=== PATIENT | female | born 1980 | race Caucasian/White ===

== ENCOUNTER → 2018-09-14 15:07 | Outpatient (CLI) | payer BC, SELFPAY ==
[2018-09-20 11:17] LABS: HPV HC, High Risk Negative (Negative)
== END ==
PROVIDERS: Visit Provider Obstetrics & Gynecology
DX: Z12.4 Encounter for screening for malignant neoplasm of cervix (principal)
CPT/HCPCS: 87624; 88175; G0145

== ENCOUNTER → 2018-12-12 16:07 | Outpatient (CLI) | payer BC, SELFPAY ==
[2017-04-25 19:40] VITALS: BMI 37.7
[2018-12-12 21:40] LABS: Chlamydia Trachomatis by PCR Negative (Negative); Neisserai gonorrhoeae by PCR Negative (Negative); Probe Check PASS; Sample Adequacy Control PASS; Specimen Processing Control PASS
== END ==
PROVIDERS: Visit Provider Obstetrics & Gynecology
DX: Z11.3 Encounter for screening for infections with a predominantly sexual mode of transmission (principal); Z32.01 Encounter for pregnancy test, result positive
CPT/HCPCS: 87491; 87591

== ENCOUNTER → 2019-01-09 10:18 | Outpatient (CLI) | payer BC, SELFPAY ==
[2017-04-25 19:40] VITALS: BMI 37.7
[2019-01-09 12:00] LABS: Color, Urine Yellow (Yellow); Glucose, Dipstick Normal (Normal); Ketone-Dipstick Negative (Negative); Leukocyte Esterase-Dipstick Negative /ul (Negative); Nitrite-Dipstick Negative (Negative); Occult Blood-Urine Negative /ul (Negative); Protein-Dipstick Negative (Negative); Specific Gravity, Urine 1.005 (1.002-1.030); Urine Bilirubin Dipstick Negative (Negative); Urine Clarity Clear (Clear); Urine Urobilinogen Normal (Normal)
[2019-01-09 12:03] LABS: Absolute Lymphocyte Count 1.56 X10^3/ul (0.83-4.51); Absolute Neutrophil Count 6.5 X10^3/uL (2.0-7.7); Basophil# 0.02 X10^3/uL; Basophil% 0.2 % (0-1); Eosinophil# 0.11 X10^3/uL; Eosinophils% 1.3 % (0-5); Hematocrit 41.5 % (37-47); Hemoglobin 13.6 g/dl (12.0-15.0); Lymphocyte # 1.56 X10^3/ul (4.0); Lymphocyte % 17.9 % (19-41); Mean Corp Hgb Conc 32.8 g/gl (32-36); Mean Corpuscular Hgb 30.5 pg (27.0-32.0); Mean Platelet Vol. 10.1 fl (6.2-12.0); Monocyte# 0.53 X10^3/uL; Monocyte% 6.1 % (0-10); Neutrophil # 6.49 X10^3/uL (2.7-7.7); Neutrophil % 74.3 % (47-70); Platelet Count 434 K/mm3 (150-450); RBC Distribution Width CV 12.1 % (11.6-14.6); RBC Distribution Width SD 40.5 fl (35.1-43.9); Red Blood Count 4.46 M/mm3 (4.2-5.4); White Blood Count 8.7 K/mm3 (4.4-11.0)
[2019-01-09 12:04] LABS: POSITIVE COUNT NO; POSITIVE DIFFERENTIAL NO; POSITIVE MORPHOLOGY NO
[2019-01-09 12:26] LABS: Thyroid Stim Hormone (TSH) 1.04 uIU/mL (0.358-3.74)
[2019-01-09 12:33] LABS: Amphetamine Urine VISTA NEGATIVE (<1000 ng/mL); Barbiturate Urine VISTA NEGATIVE (< 200 ng/mL); Benzodiazepine Urine VISTA NEGATIVE (< 200 ng/mL); Cocaine Urine VISTA NEGATIVE (< 300 ng/mL); Ecstacy Urine VISTA NEGATIVE (< 500 ng/mL); Methadone Urine VISTA NEGATIVE (< 300 ng/mL); PCP Urine VISTA NEGATIVE (< 25 ng/mL); THC Urine VISTA NEGATIVE (< 50 ng/mL); Vista UDS pH Range 7
[2019-01-09 13:04] LABS: HIV - WCH Non-Reactive (Nonreactive); Rubella IgG 37.9 IU/mL
[2019-01-09 13:42] LABS: COTININE Drug Screen Negative (<200 ng/mL)
[2019-01-10 11:47] LABS: HEPATITIS B SURFACE AG Negative (Negative); Hep C Antibodies <0.1 s/co ratio (0.0-0.9)
[2019-01-11 22:02] LABS: Prenatal RPR NONREACTIVE (NONREACTIVE)
== END ==
PROVIDERS: Visit Provider Obstetrics & Gynecology
DX: Z34.81 Encounter for supervision of other normal pregnancy, first trimester (principal)
CPT/HCPCS: 36415; 80307; 81002; 84443; 85025; 86703; 86762; 86803; 87340

== ENCOUNTER → 2019-05-17 | Outpatient (CLI) | payer BC, SELFPAY ==
[2017-04-25 19:40] VITALS: BMI 37.7
[2019-05-17 15:57] LABS: Glucose Challenge Gest 1H 50g 150 mg/dL (70-140)
[2019-05-17 16:04] LABS: Hematocrit 32.3 % (37-47); Hemoglobin 10.5 g/dl (12.0-15.0); Mean Corp Hgb Conc 32.5 g/gl (32-36); Mean Corpuscular Hgb 28.6 pg (27.0-32.0); Mean Platelet Vol. 9.4 fl (6.2-12.0); Platelet Count 389 K/mm3 (150-450); RBC Distribution Width CV 13.1 % (11.6-14.6); RBC Distribution Width SD 42.1 fl (35.1-43.9); Red Blood Count 3.67 M/mm3 (4.2-5.4); White Blood Count 13.5 K/mm3 (4.4-11.0)
[2019-05-17 16:06] LABS: Scan Indicated on CBC? Y/N NO
== END | disposition home or self-care (01) ==
LOC: WOBLAB 15:00
PROVIDERS: Visit Provider Obstetrics & Gynecology
DX: Z34.83 Encounter for supervision of other normal pregnancy, third trimester (principal)
CPT/HCPCS: 36415; 82950; 85027

== ENCOUNTER → 2019-05-24 | Outpatient (CLI) | payer BC, SELFPAY ==
[2019-05-24 10:34] LABS: Glucose GTT-Gestation. Fasting 84 mg/dL (<105)
[2019-05-24 11:48] LABS: Glucose GTT-Gestational 1 Hr 130 mg/dL (<190)
[2019-05-24 13:12] LABS: Glucose GTT-Gestational 2 Hr 145 mg/dL (<165)
[2019-05-24 13:49] LABS: Glucose GTT-Gestational 3 Hr 72 L (<145)
== END | disposition home or self-care (01) ==
PROVIDERS: Family Provider Family Medicine; PCP Family Medicine; Referring Provider Obstetrics & Gynecology; Visit Provider Obstetrics & Gynecology
DX: O99.810 Abnormal glucose complicating pregnancy (principal); Z3A.00 Weeks of gestation of pregnancy not specified
CPT/HCPCS: 36415; 82951; 82952

== ENCOUNTER 2019-08-06 05:30 | Inpatient (IN) | payer BC, SELFPAY ==
--- NOTE | 2019-08-04 19:10 | PCM.HPOB.BLA ---
History and Physical Date of Admission: 08/06/19 OB HISTORY AND PHYSICAL EXAMINATION History of this : 38 yo female Ab0 with EDC 08/10/2019 by 9 weeks 4 days Ultrasound, presents to Labor and Delivery for planned repeat C section and BPS. care remarkable for - 1.) Sterilization request 2.) Abnormal Glucola normal 3 hr GTT. 3.) AMA. declined MSAFP testing Had normal cell free DNA 4.) Prior C/S delivery plans repeat C section 5.) FOB with known hemochromatosis Pertinent Past Medical History: \\None Allergies: NKDA Medications: During - Vitamin B Complex With C capsule; ferrous gluconate 324 mg (37.5 mg iron) tablet; PreNata 29 mg iron- 1 mg tablet,chewable Review of Systems: Non-contributory PHYSICAL EXAMINATION General Appearance: 38 yo female in no acute distress Vital Signs: AF, VSS Lungs: regular respiratory rate Breasts: deferred Abdomen: gravid Pelvis: Cervix: Presentation: cephalic Station: Fetus: Size: AGA Movement: present Heart: present Impression /Plan: Intrauterine . 39 wk EGA Prior C section, planned repeat. Sterilization request. Admit for repeat C section and bilateral partial salpingectomy. Se
[2019-08-06] VITALS (22 sets, daily range): BP systolic 90–146; BP diastolic 41–81; PULSE 80–112; RESP 12–18; TEMP 35.9–37.4; O2SAT 94–100; BMI 41.3
[2019-08-06] MEDS: Lactated Ringers 1,000 ML 999 ML IV (05:50)
[2019-08-06 06:17] LABS: Absolute Lymphocyte Count 1.79 X10^3/uL (0.83-4.51); Absolute Neutrophil Count 8.9 X10^3/uL (2.0-7.7); Basophil# 0.04 X10^3/uL; Basophil% 0.3 % (0-1); Eosinophil# 0.15 X10^3/uL; Eosinophils% 1.3 % (0-5); Hematocrit 34.7 % (37-47); Hemoglobin 11.1 g/dL (12.0-15.0); Lymphocyte # 1.79 X10^3/ul (4.0); Lymphocyte % 15.4 % (19-41); Mean Corpuscular Hgb 28.6 pg (27.0-32.0); Mean Corpuscular Volume 89.4 fL (81-99); NRBC Flagged by Analyzer 0 % (0-5); Neutrophil # 8.85 X10^3/uL (2.7-7.7); Neutrophil % 75.9 % (47-70); Platelet Count 397 K/mm3 (150-450); RBC Distribution Width CV 14.9 % (11.6-14.6); RBC Distribution Width SD 48.4 fl (35.1-43.9); Red Blood Count 3.88 M/mm3 (4.2-5.4); White Blood Count 11.7 K/mm3 (4.4-11.0)
[2019-08-06] MEDS: Lactated Ringers 1,000 ML 150 ML IV (06:51)
[2019-08-06 07:04] LABS: International Normalized Ratio 0.9; Prothrombin Time (Protime)PT. 12.2 SECONDS (11.7-14.9)
[2019-08-06 07:05] LABS: Partial Thromboplast Time 24.1 Seconds (24.1-36.2)
[2019-08-06] MEDS: Sodium Citrate/Citric Acid 30 ML UDC PO (07:17)
--- NOTE | 2019-08-06 07:44 | DCINST_ITS ---
Discharge Diet: No Restrictions Discharge Activity: May not drive while taking narcotic pain medications., May Shower, May Take a Tub Bath May resume sexual activity in: 4-6 weeks Lifting Restrictions: 20 pounds Additional Activity Instructions:: Nothing in the vagina for 4-6 weeks. You may return to work/school in 6 weeks. Change Dressing in (Days):: 7 Remove Dressing in (days):: 7 Cleanse incision/area with: Soap & Water, Keep Dressing Clean & Dry Additional Instructions: If you experience any of the following, contact your healthcare provider. * Bleeding that soaks a pad every hour for 2 hours * Fever 100.4 or higher * Unrelieved incision or abdominal pain * Swelling, redness, discharge or bleeding from your incision * Problems urinating (including inability to urinate or burning while urinating). * Visual changes * Severe headache * Flu-like symptoms * Pain or redness in one of both of your breasts * Pain, warmth, tenderness or swelling in your legs, especially the calf area * Frequent nausea and vomiting * Symptoms of depression or anxiety If you experience any of the following, call 911 or go to the nearest Emergency Room. * Chest pain * Problems breathing * Seizure activity * Partial or complete paralysis of a body part, slurred speech, weakness or drooping of the face, or a sudden inability to walk or hold your balance Allergies/Adverse Reactions: Allergies No Known Allergies Allergy (Verified 08/06/19 07:44) Medications to take at Discharge Vits [Prenatabs FA ] 1 tablet PO DAILY 04/25/17 Vitamin B Complex/Folic Acid [Super B Maxi Complex Caplet] 0.4 mg PO DAILY 04/25/17 Ibuprofen [Motrin] 800 mg PO TID PRN PRN #30 tablet 04/27/17 Oxycodone [Oxyir] 5 - 10 mg PO Q4H PRN PRN #30 tablet 04/27/17 Nifedipine [Procardia Xl] 30 mg PO DAILY #30 tab.er.24 04/29/17 Docusate Sodium [Colace] 100 mg PO BID #30 cap 08/06/19 Naproxen [Naprosyn] 250 - 500 mg PO TID PRN PRN #30 tab 08/06/19 Oxycodone [Oxyir] 5 - 10 mg PO Q6H PRN PRN 3 Days #15 tablet 08/06/19 Polyethylene Glycol 3350 [Miralax] 17 gm PO DAILY PRN #14 packet 08/06/19 The following prescriptions were given: Docusate Sodium [Colace] 100 mg PO BID #30 cap Transmission Status: Pending to [id number] Polyethylene Glycol 3350 [Miralax] 17 gm PO DAILY PRN #14 packet PRN Reason: Constipation Transmission Status: Pending to [id number] Naproxen [Naprosyn] 250 - 500 mg PO TID PRN PRN #30 tab PRN Reason: Mild-Mod Pain (1-04/06) Transmission Status: Pending to [id number] Oxycodone [Oxyir] 5 - 10 mg PO Q6H PRN PRN 3 Days #15 tablet PRN Reason: Mod-Severe Pain (-09/06) Transmission Status: Received by [id number] Follow-Up: Call to make an appointment with your doctor for an incision check in 1-2 weeks. You will also need a 6 week post- follow up appointment. Test results from this visit will be discussed in further detail at your follow- up appointment, if applicable. Please Follow Up With: Rose Aquino MD - [phone] When: Call to make an appointment for an incision check in 2 weeks. Primary Care Physician: Katerina Mello MD [Primary Care Provider] - Proposed Discharge Date: 08/09/19
[2019-08-06] MEDS: Cefazolin 2 GM in 0.9% Normal Saline 100 ML IV (07:48)
--- NOTE | 2019-08-06 07:59 | FALS_PTH ---
PATIENT: HALLE WINKLER LOC: [facility] U#:[id number] AGE/SX: 38/F ROOM: [facility]004 RE08/06/[address]: Dr. Rose Aquino MD : 1980 BED: 1 DIS: 08/08/2019 SPEC #: [id number] RECD: 08/06/19 17:27 STATUS: TREV RETita #: [id number] AMINA: 08/06/19 07:[address]: Rose Aquino DEPT: SURGICAL PATHOLOGY RECD BY: Matthew Grimes ENTERED: 08/07/19 09:23 SP TYPE: FALL TUBES OTHR DR: Dr. Katerina Mello MD Tissues: Fallopian tube Procedures: Surgery Specimen Level II HEADER OPERATION: Tubal ligation PRE-OP DIAGNOSIS: Tubal ligation TISSUE SUBMITTED: A. Right fallopian tube, B. Left fallopian tube MICROSCOPIC DIAGNOSIS A. Right fallopian tube, tubal ligation: Completely transected segment of fallopian tube, no pathologic diagnosis. B. Left fallopian tube, tubal ligation: Completely transected segment of fallopian tube, no pathologic diagnosis. JOSEE:giovanni 08/08/19 MICROSCOPIC DESCRIPTION Slides are reviewed. GROSS DESCRIPTION A - Received is one container labeled with the patient's name and designated right fallopian tube. The specimen consists of a tubular piece of pink-lima soft tissue measuring 1.2 cm in length and 0.5 cm in diameter. The entire specimen is submitted in one cassette. The specimen will be sectioned at the time of embedding. B - Received is one container labeled with the patient's name and designated left fallopian tube. The specimen consists of a tubular piece of pink-lima soft tissue measuring 1 cm in length and 0.6 cm in diameter. The entire specimen is submitted in one cassette. The specimen will be sectioned at the time of embedding. / JOSEE:giovanni 08/07/19 TC:4 CPT: 79713 x2
[2019-08-06] MEDS: Oxytocin 30 units/NS 500 ml 30 UNITS/500 ML IV.SOLN 167 UNITS IV (09:21)
[2019-08-06] MEDS: Lactated Ringers 1,000 ML 100 ML IV (13:05)
[2019-08-06] MEDS: Prenatal Vits Tablet 1 TABLET PO (15:16)
[2019-08-06] MEDS: Ketorolac 30 MG/ML Syringe IV ×2 (15:17→21:01)
--- NOTE | 2019-08-06 17:04 | OP.PCM_ITS ---
Report of Operation Date of Procedure: 08/06/19 Pre-Operative Diagnosis: 39 wk prior C/S planned repeat C section. Steri lization request Post-Operative Diagnosis: Same Surgery/Procedure Performed:: Repeat C section and bilateral partial salpingectomy Description of Surgical Findings:: Normal appearing uterus, fallopian tubes and ovaries bilaterally. Filmy adhesions at both fallopian tubes, lysed for procedure. Solomon viable female vtx presentation. Ap 8/9 Wt: 3812 gm glucose and syrup weigher: Judy Ureña Type of Anesthesia:: Spinal Anesthesiologist: Rojelio Jimenes Specimen's removed: Placenta Drains: Gill , clear yellow urine Estimated Blood Loss (mL): 600 cc Fluids Replaced: LR - Complications None Delivery Classification: Scheduled Final ALPA: 08/10/19 Gestational age: 39 Weeks and 3 Days Description of Procedure: Narrative account: After the risks, benefits and alternatives of the procedure were reviewed with the patient, informed consent was obtained. The patient was taken to the Operating room with an IV running, and placed in a seated position on the operating table for placement of the spinal. Once the spinal had been administered, she was briefly frog-legged for Gill catheter placement, and then repositioned to dorsal supine position with leftward displacement of the uterus, and prepped and draped in the usual sterile fashion. Once the spinal was deemed adequate, a Pfannenstiel skin incision was created using the knife (through the prior skin incision scar). The incision was carried down to the rectus fascia using the knife. The fascia was nicked in the midline. The fascial incision was extended bilaterally using curved Virgen scissors. The superior aspect of the fascial incision was grasped with Hoang clamps and tented up and the underlying rectus abdominal muscles were dissected free. In a similar manner, the inferior aspect of the facial incision was grasped with Hoang clamps tented up and the underlying rectus abdominal muscles were dissected free. The rectus abdominis muscles were in the midline and the peritoneum was identified and entered by blunt dissection high in the incision. The peritoneum was stretched laterally and a bladder blade was inserted. A bladder flap was created along the lower uterine segment with Metzenbaum scissors . The uterine incision was then created using Metzenbaum scissors. The operators fingertips were used to extend the uterine incision by blunt dissection in a caudad- cephalad orientation . Clear fluid was noted at amniotomy. The vertex was then delivered atraumatically through the incision. The OP and nares were bulb suctioned on the abdomen. The shoulders delivered easily . The cord clamped x two and cut. And the was handed off to the nurse awaiting delivery after briefly showing her to her parents. The baby had a spontaneous, vigorous cry. The placenta was then delivered. The uterus was exteriorized and cleared of clots and debris . The uterine incision was repaired with 1 Vicryl in a running locked fashion. A second imbricating layer was then placed, using 1 Monocryl in running nonlocked fashion. Bovie cautery was used to treat any bleeding areas . Excellent hemostasis was noted. At this point attention was then turned to the bilateral partial salpingectomy. The right fallopian tube was grasped at a relatively avascular midportion and a Bernardo clamp was used to tent the tube up. A defect was created in the mesosalpinx using Bovie cautery. The proximal and distal ends of the fallopian tube were tied with a 2-0 catgut. A knuckle of the tube was then tied off inferior to these 2 ties placed prior. A segment of the right fallopian tube was then excised using Metzenbaum scissors. Bovie cautery was used at the tubal stumps to assure continued hemostasis. The tubal segment was set aside for later pathology review. In a similar manner the left fallopian tube partial salpingectomy was performed. Excellent hemostasis was noted at both tubal segments. The two portions of the completely transected fallopian tubes were set aside for later pathology review. At this point the uterus was returned to the abdominal cavity. The gutters were cleared of clots and debris and the incision at the uterus was inspected. Surgicell was applied along the entire incision for continued hemostasis. Excellent hemostasis was noted. The peritoneal edges were reapproximated in the midline with interrupted vertical mattress sutures of 1 Vicryl. Surgicel was applied to this layer. Excellent hemostasis was noted at the subfascial space Surgicel was dusted over this layer as well. The fascia was closed in a running nonlocked fashion with a Stratofix. The Subcutaneous fatty tissue was Bovie cauterized as needed for hemostasis. Surgicel was liberally dusted at this layer to prevent seroma formation. This layer was then reapproximated in a single layer closure of running 3-0 Vicryl to eliminate space. The skin edges were closed in a Subcuticular stitch of 4-0 Monocryl. The incision was cleansed. Cavilon, Steristrips, and Mepilex dressing were applied to the skin . The patient was then transferred to the recovery room bed in stable condition after tolerating the procedure well. Sponge, lap, needle and instrument counts correct times two. Medications given preop and intraoperatively included: Ancef 2 gm IV given personnel consultant to the operating room. The patient also received Pitocin given IV after cord clamp, and Toradol 30 mg IV times one. For a complete listing of medications given preop and intraoperatively, please see the anesthesia record. Amniotic Membrane Rupture Type: Artificial Amniotic Fluid Description: Clear Placenta Disposition: [facility] Specimen(s) sent to pathology: bilateral tubal segments Drain: Gill to straight drain Cord Entanglement: None Cord Vessel Description: 3 Vessels Esitmated Blood Loss (ml): 600 Gender: Female (1 minute): 9 (5 minute): 9 Delayed cord clamping: No Antibiotic Given: Ancef 2 grams IV x1
[2019-08-06 17:25] LABS: Pathology Specimen OB SEE PATHOLOGY REPORT
--- NOTE | 2019-08-06 18:04 | NURSING ---
accidently charted full set of vitals at 1755 that was meant to go on another patient, when undoing it, this nurse accidently clicked on elevated glucose as to reason undid.
[2019-08-06] MEDS: 0.9% Saline Lock 10 ML Syringe IV ×2 (21:01→21:03)
[2019-08-07] VITALS (9 sets, daily range): BP systolic 101–142; BP diastolic 62–92; PULSE 90–101; RESP 16–20; TEMP 36.4–37.3; O2SAT 96–99
[2019-08-07] MEDS: Ketorolac 30 MG/ML Syringe IV ×3 (03:10→14:53)
[2019-08-07] MEDS: 0.9% Saline Lock 10 ML Syringe IV ×4 (03:11→14:53)
[2019-08-07 05:19] LABS: Hematocrit 27.1 % (37-47); Hemoglobin 8.8 g/dL (12.0-15.0); Mean Corp Hgb Conc 32.5 g/dL (32-36); Mean Corpuscular Hgb 29.1 pg (27.0-32.0); Mean Corpuscular Volume 89.7 fL (81-99); Mean Platelet Vol. 9.8 fl (6.2-12.0); Platelet Count 257 K/mm3 (150-450); RBC Distribution Width CV 15.2 % (11.6-14.6); RBC Distribution Width SD 49.7 fl (35.1-43.9); Red Blood Count 3.02 M/mm3 (4.2-5.4); White Blood Count 16.9 K/mm3 (4.4-11.0)
--- NOTE | 2019-08-07 07:42 | PCM.PN.OB ---
Subjective: pod#1 39 + WK Prior C section. Repeat C/S and BPS. Doing well. No concerns, a little more sore this am. Gill out but hasn't been up to void. Neg flatus. Minimal bleeding. - Physical Exam General: Alert, Oriented x3, Cooperative, No apparent distress HEENT: Atraumatic, EOMI Neck: Supple Abdomen: Soft - Fundus firm minimally tender c/w postop status, at approx 1 cm above umbilicus Skin: Incision - Mepilex dressing CDI. Psych/Mental Status: Normal Affect Vital Signs Temp Pulse Resp BP Pulse Ox 98.5 F 90 16 101/62 98 08/07/19 03:15 08/07/19 07:00 08/07/19 07:00 08/07/19 03:15 08/07/19 07:00 Oxygen Delivery Method Room Air Weight: 102.603 kg Body Mass Index (BMI) 41.3 Intake and Output for Last 24 Hours 08/05/19 08/06/19 08/07/19 23:59 23:59 23:59 Intake Total 5776.67 / 5776.67 900 / 900 Output Total 2300 / 2300 1200 / 1200 Balance 3476.67 / 3476.67 -300 / -300 Laboratory Tests Past 24 Hrs 08/07/19 05:00 WBC 16.9 H RBC 3.02 L Hgb 8.8 L Hct 27.1 L MCV 89.7 MCH 29.1 MCHC 32.5 RDW Std Deviation 49.7 H RDW Coeff of Juancarlos 15.2 H Plt Count 257 MPV 9.8 Medical Necessity - Tobacco Use Smoking Status: Never smoker Assessment/Plan POD#1 Repeat C section and BPS 39+ wk EGA Stable postop. Inc diet and activity as tolerated. Begin po meds. Gill out for voiding trial. S/L IV for continued toradol x 48 hr postop Postop acute blood loss anemia. -- Ferrous sulfate daily for one month Continue care.
[2019-08-07] MEDS: Senna/Docusate Sodium 1 Tablet PO (12:48)
[2019-08-07] MEDS: Ferrous Sulfate 325 MG Tablet PO (12:48)
[2019-08-07] MEDS: Prenatal Vits Tablet 1 TABLET PO (12:48)
[2019-08-07] MEDS: oxyCODONE 5 MG Tablet PO ×2 (14:06→20:47)
[2019-08-08] MEDS: oxyCODONE 5 MG Tablet PO ×3 (01:22→13:04)
[2019-08-08] MEDS: Naproxen 250 MG Tablet PO ×2 (02:49→11:00)
[2019-08-08 03:30] VITALS: BP 122/78; PULSE 87; RESP 16; TEMP 37.6
--- NOTE | 2019-08-08 07:34 | PCM.PN.OB ---
Subjective: POD#2 Repeat C/S and BPS Doing well. Would like to go home today. Pain control adequate. - Physical Exam General: Alert, Oriented x3, Cooperative, No apparent distress HEENT: Atraumatic, EOMI Neck: Supple Abdomen: Soft - Fundus firm minimally tender at umbilicus Skin: Incision - CDI mepilex dressing in place. Psych/Mental Status: Normal Affect Vital Signs Temp Pulse Resp BP Pulse Ox 99.6 F H 87 16 122/78 H 99 08/08/19 03:30 08/08/19 03:30 08/08/19 03:30 08/08/19 03:30 08/07/19 20:25 Oxygen Delivery Method Room Air Weight: 102.603 kg Body Mass Index (BMI) 41.3 Intake and Output for Last 24 Hours //08/07/19 08/08/19 23:59 23:59 23:59 Intake Total 5776.67 / 5776.67 900 / 900 Output Total 2300 / 2300 2100 / 2100 Balance 3476.67 / 3476.67 -1200 / -1200 Medical Necessity - Tobacco Use Smoking Status: Never smoker Assessment/Plan POD#2 Repeat C section and BPS 39+ wk EGA Stable postop. Dischg home today. RTO in 2 wk for postop check. Postop acute blood loss anemia. -- Ferrous sulfate daily for one month
--- NOTE | 2019-08-08 07:37 | DS.PCM_ITS ---
Discharge Date and Diagnosis Date of Admission: 08/06/19 Date of Discharge: 08/08/19 - Secondary Discharge Diagnosis Chronic Problems Arrest of descent, delivered, current hospitalization (Chronic) Hospital Course and Treatment Operations: - - primary LTCS Summary of Care Provided: The patient is a 38 year old female at 39 + wk EGA Presents for repeat C/S and BPS. Admitted on 08/06/19 for surgery Surgery uneventful with findings: Normal appearing uterus, fallopian tubes and ovaries bilaterally. Filmy adhesions at both fallopian tubes, lysed for procedure. Solomon via ble female vtx presentation. Ap 8/9 Wt: 3812 gm Preop Hgb 11 and postop Hgb 8.8 g/dl. Postop course uneventful other than acute blood loss anemia. Stable. Dischg home benign exam. - Physical Exam Vital Signs Temp Pulse Resp BP Pulse Ox 99.6 F H 87 16 122/78 H 99 08/08/19 03:30 08/08/19 03:30 08/08/19 03:30 08/08/19 03:30 08/07/19 20:25 Oxygen Delivery Method Room Air Weight: 102.603 kg Body Mass Index (BMI) 41.3 Intake and Output for Last 24 Hours 08/06/19 08/07/19 08/08/19 23:59 23:59 23:59 Intake Total 5776.67 / 5776.67 900 / 900 Output Total 2300 / 2300 2100 / 2100 Balance 3476.67 / 3476.67 -1200 / -1200 Discharge Diet: No Restrictions Discharge Activity: May not drive while taking narcotic pain medications., May Shower, May Take a Tub Bath May resume sexual activity in: 4-6 weeks Additional Activity Instructions:: Nothing in the vagina for 4-6 weeks. You may return to work/school in 6 weeks. Change Dressing in (Days):: 7 Remove Dressing in (days):: 7 Cleanse incision/area with: Soap & Water, Keep Dressing Clean & Dry Home Medications: Medications to take at Discharge Vits [Prenatabs FA ] 1 tablet PO DAILY 04/25/17 Vitamin B Complex/Folic Acid [Super B Maxi Complex Caplet] 0.4 mg PO DAILY 04/25/17 Claritin-D 24 Hour Tablet 1 tab PO DAILY 08/06/19 Ferrous Gluconate 1 tab PO BID 08/06/19 Omeprazole Magnesium [Prilosec Otc] 1 tab PO DAILY 08/06/19 Primary Care Physician: Katerina Mello MD [Primary Care Provider] - Please Follow Up With: Rose Aquino MD - [phone] When: Call to make an appointment for an incision check in 2 weeks. Medical Necessity - Tobacco Use Smoking Status: Never smoker Meaningful Use Info Meaningful Use Diagnoses (Choose all that apply): None applicable
[2019-08-08] MEDS: Senna/Docusate Sodium 1 Tablet PO (07:48)
[2019-08-08 07:51] VITALS: BP 125/83; PULSE 88; RESP 16; TEMP 36.6; O2SAT 97
[2019-08-08] MEDS: Ferrous Sulfate 325 MG Tablet PO (11:00)
[2019-08-08] MEDS: Prenatal Vits Tablet 1 TABLET PO (11:00)
[2019-08-08 14:32] VITALS: BP 116/73; PULSE 98; RESP 16; TEMP 36.6
== END 2019-08-08 15:10 | disposition home or self-care (01) | DRG 784 ==
PROVIDERS: Admitting Provider Obstetrics & Gynecology; Family Provider Family Medicine; PCP Family Medicine; Referring Provider Obstetrics & Gynecology; Visit Provider Obstetrics & Gynecology
PROC: 10D00Z1 Extraction of Products of Conception, Low, Open Approach (ICD-10-PCS; CPT 59514; principal; 2019-08-06 07:15)
DX: O34.211 Maternal care for low transverse scar from previous cesarean delivery (principal); D62 Acute posthemorrhagic anemia; Z3A.39 39 weeks gestation of pregnancy; Z37.0 Single live birth; O90.81 Anemia of the puerperium
CPT/HCPCS: 36415; 85025; 85027; 85610; 85730; 86850; 86900; 86901; 88302; 99218; J7120; A4216; G0378; J2405

== ENCOUNTER → 2025-02-21 | Outpatient (CLI) | payer OTHER, SELFPAY ==
[2025-02-21 14:00] LABS: Absolute Lymphocyte Count 2.59 X10^3/uL (0.83-4.51); Basophil# 0.07 X10^3/uL; Basophil% 0.6 % (0-1); Eosinophil# 0.34 X10^3/uL; Eosinophils% 2.7 % (0-5); Hematocrit 37.9 % (37-47); Hemoglobin 12.4 g/dL (12.0-15.0); Lymphocyte # 2.59 X10^3/ul (0.83-4.51); Lymphocyte % 20.4 % (19-41); Mean Corp Hgb Conc 32.7 g/dL (32-36); Mean Corpuscular Hgb 27.7 pg (27.0-32.0); Mean Corpuscular Volume 84.8 fL (81-99); Mean Platelet Vol. 9.4 fl (6.2-12.0); Monocyte# 0.69 X10^3/uL; Monocyte% 5.4 % (0-10); NRBC Flagged by Analyzer 0 % (0-5); Neutrophil # 8.95 X10^3/uL (2.7-7.7); Neutrophil % 70.4 % (47-70); Platelet Count 508 K/mm3 (150-450); RBC Distribution Width CV 13.1 % (11.6-14.6); RBC Distribution Width SD 40.2 fl (35.1-43.9); Red Blood Count 4.47 M/mm3 (4.2-5.4); White Blood Count 12.7 K/mm3 (4.4-11.0)
[2025-02-21 17:11] LABS: Vitamin B12 783 pg/mL (180-914)
[2025-02-21 21:06] LABS: ALB/GLOB Ratio 1.6 RATIO (0.9-2.4); AST(SGOT) 26 U/L (<=31); Alanine Aminotransfer ALT/SGPT 26 U/L (<=34); Albumin, Serum 4.1 g/dL (3.5-5.0); Alkaline Phosphatase 118 U/L (35-104); Anion Gap 15 (5-15); BUN 17 mg/dL (4-19); BUN/Creat Ratio 20.9 RATIO (10-20); Calcium,Total 9.1 mg/dL (7.6-11.0); Carbon Dioxide 22.1 mmol/L (21.0-32.0); Chloride 103 mmol/L (98-108); EST Glomerular Filtration Rate 92 (>60); Globulin 2.5 g/dL (2.2-4.2); Glucose 86 mg/dL (70-99); Protein, Total 6.6 g/dL (5.9-8.4); Sodium Level 139 mmol/L (133-145); Total Bilirubin < 0.15 mg/dL (0.00-1.30)
[2025-02-26 16:09] LABS: HPV APTIMA, High Risk Negative (Negative)
== END | disposition home or self-care (01) ==
PROVIDERS: PCP Family Medicine; Referring Provider Nurse Practitioner Family; Visit Provider Nurse Practitioner Family
DX: Z12.4 Encounter for screening for malignant neoplasm of cervix (principal); Z13.21 Encounter for screening for nutritional disorder; Z13.29 Encounter for screening for other suspected endocrine disorder
CPT/HCPCS: 36415; 80053; 82306; 82607; 84439; 84443; 85025; 87624; 88175; G0145

== ENCOUNTER → 2025-03-04 | Outpatient (CLI) | payer OTHER, SELFPAY ==
--- NOTE | 2025-03-04 15:00 | BI_ITS ---
EXAM: SCRN MAMM (CAD)W/SRIRAM BILAT 03/04/2025 CLINICAL HISTORY: F, Age 44 y/o , SCREENING MAMMOGRAM TECHNIQUE: Bilateral screening digital breast tomosynthesis with 2D and 3D images. Computer aided detection. COMPARISON: Prior exam(s) dated 11/07/2018. FINDINGS: TISSUE DENSITY: The breast tissue is almost entirely fatty. Bilateral Breast Mammographic Findings: No significant masses, calcifications or other abnormalities are identified. BI/SCRN MAMM (CAD)W/SRIRAM BILAT IMPRESSION: Right Breast: BIRADS 1 NEGATIVE. Left Breast: BIRADS 1 NEGATIVE. OVERALL FINAL ASSESSMENT: BIRADS 1 NEGATIVE. RECOMMENDATION: Routine annual follow-up in 1 Year A letter with findings and recommendations will be mailed to the patient. Reading Location: [id number]
== END | disposition home or self-care (01) ==
LOC: OPBI 15:02
PROVIDERS: PCP Family Medicine; Referring Provider Nurse Practitioner Family; Visit Provider Nurse Practitioner Family
DX: Z12.31 Encounter for screening mammogram for malignant neoplasm of breast (principal)
CPT/HCPCS: 77063; 77067